=== PATIENT | female | born 1995 | race Hispanic/Latino ===

== ENCOUNTER 2018-03-25 00:31 | Emergency (ER) | payer BC ==
[2018-03-25] MEDS ORDERED: Ondansetron PF 4 MG/2 ML Vial ONE (00:38)
[2018-03-25 01:18] LABS: Band 5 % (5-11); Hemoglobin 14.8 g/dL (12.0-16.0); Lymphocytes 13 % (21-51); MDiff Complete? YES; Mean Corpuscular Hemoglobin 31.1 pg (27.0-31.0); Mean Corpuscular Volume 94.3 fL (78.0-98.0); Mean Platelet Volume 7.8 fL (7.4-10.4); Monocytes 5 % (0-10); Neutrophil 77 % (42-75); PLT Morphology Comment Appears Adequate; Platelet Count 314 thou/uL (130-400); Red Blood Cell (RBC) Count 4.75 mill/uL (4.20-5.40); White Blood Cell (WBC) Count 20.2 thou/uL (4.8-10.8)
[2018-03-25 01:21] LABS: ALT (SGPT) 27 U/L (8-55); AST (SGOT) 25 U/L (5-34); Albumin 4.3 g/dL (3.5-5.0); Alkaline Phosphatase 48 U/L (40-150); Anion Gap 15 mmol/L (10-20); BUN (Urea Nitrogen) 10 mg/dL (7.0-18.7); Bilirubin, Total 0.2 mg/dL (0.2-1.2); Calc. Creatinine Clearance 0 mL/min (70-130); Calcium 9.7 mg/dL (7.8-10.44); Carbon Dioxide 22 mmol/L (22-29); Chloride 102 mmol/L (98-107); Estimated GFR-MDRD 83; Globulin 3.9 g/dL (2.4-3.5); Glucose 91 mg/dL (70-105); Potassium 3.8 mmol/L (3.5-5.1); Protein, Total 8.2 g/dL (6.0-8.3); Sodium 135 mmol/L (136-145)
[2018-03-25] MEDS ORDERED: Dicyclomine 20 MG TAB ONE (02:04)
[2018-03-25] MEDS ORDERED: Metoclopramide HCl 10 MG/2 ML VIAL ONE (02:04)
[2018-03-25] MEDS ORDERED: diphenhydrAMINE 50 MG/ML VIAL ONE (02:04)
[2018-03-25] MEDS ORDERED: Pantoprazole 40 MG VIAL ONE (02:05)
[2018-03-25 02:44] LABS: Bilirubin Negative (Negative); Blood, Urine Negative (Negative); Clarity CLEAR (Clear); Glucose, Urine (Dipstick) Negative (Negative); Leukocyte Negative (Negative); Nitrite Negative (Negative); Protein, Urine (Dipstick) Trace mg/dL (Neg-Trace); Specific Gravity, Urine 1.024 (1.002-1.036); Urobilinogen 0.2 mg/dL (0.2-1.0)
[2018-03-25 02:46] LABS: Pregnancy Test - Urine (BHCG) Negative (Negative); Pregu Control Background? CLEAR/WHITE (CLR/WHITE); Pregu Control Bar Appear? YES (CONTROL BAR); Specific Gravity 1.024 (1.002-1.036)
[2018-03-25 03:00] LABS: Bacteria/HPF None Seen HPF (None Seen); Hyaline Casts/LPF 0-3 HYALINE CAST LPF (0-3 Hyaline); RBC/HPF 0-3 HPF (0-3); Squamous Epithelial 0-3 HPF (0-3); WBC/HPF 0-3 HPF (0-3)
--- NOTE | 2018-03-25 08:20 | CT ---
PRELIMINARY REPORT/[facility]/EMERGENTY AFTER-HOURS PROCEDURE CT Abdomen and Pelvis With Intravenous Contrast CLINICAL HISTORY: 22 years old, female; Pain; Abdominal pain; Acute; Patient HX: Pt reports abdominal pain onset at 200 0 today with associated vomiting. Reports possible hemorrhoid as well. TECHNIQUE: Axial computed tomography images of the abdomen and pelvis with intravenous contrast. All CT scans at this facility use at least one of these dose optimization techniques: automated exposure control; mA and/or kV adjustment per patient size (includes targeted exams where dose is matched to clinical indication); or iterative reconstruction. Coronal reformatted images were created and reviewed. COMPARISON: No relevant prior studies available. FINDINGS: Lung bases: No acute findings. No mass. No consolidation. ABDOMEN: Liver: No acute findings. No mass. Gallbladder and bile ducts: Few small calcified gallstones. No gallbladder wall thickening or pericho lecystic fluid. No biliary dilation. Pancreas: No ductal dilation. No mass. Spleen: No acute findings. No mass. Adrenals: No mass. Kidneys and ureters: No acute findings. No hydronephrosis. No solid mass. Stomach and bowel: Fluid-filled small and large bowel loops. There appears to be bowel wall enhanceme nt/thickening. Findings are likely related to enterocolitis. No evidence of bowel obstruction. PELVIS: Appendix: No findings to suggest acute appendicitis. Bladder: No acute findings. No mass. Reproductive: Right Bartholin gland cyst. ABDOMEN and PELVIS: Intraperitoneal space: No free air. No significant fluid collection. Bones/joints: No acute fracture. Soft tissues: No acute findings. Partially visualized right breast questionable asymmetric density. Vasculature: No acute findings. No abdominal aortic aneurysm. Lymph nodes: No lymphadenopathy. IMPRESSION: Enterocolitis. Cholelithiasis. Partially visualized right breast questionable asymmetric density; consider breast imaging correlatio n. Thank you for allowing us to participate in the care of your patient. Dictated and Authenticated by: John Lawrence MD 03/25/2018 4:15 AM Central Time ([place] & [place]) FINAL REPORT EMERGENT AFTER HOURS CT OF ABDOMEN AND PELVIS PERFORMED WITH CONTRAST ENHANCEMENT: HISTORY: Abdominal pain with vomiting. FINDINGS: The lung bases show some linear atelectatic change. Asymmetric soft tissue density of the right trena st in a patient of this age is probably just related to breast parenchyma, clinical examination. Thi s appears to be near the periareolar region of the breast. If indicated, ultrasound may be helpful i n assessment. The liver, spleen, and pancreas regions are unremarkable. Small areas of increased attenuation of th e gallbladder lumen appeared to represent some small stones. Right and left adrenal glands are normal in size and appearance. Right and left kidneys are normal. There is no significant periarticular adenopathy. There is some mild mesenteric adenopathy and smal l bowel loops, while not distended, are mildly fluid-filled as is some of the colon. This causes a s light enhancement pattern to the wall of the colon and small bowel which may just be related to the f luid within it causing the appearance. CT OF PELVIS PERFORMED WITH CONTRAST ENHANCEMENT: The appendix is normal. There is no adenopathy, mass, or free fluid. IMPRESSION: 1. Gallstones. 2. Asymmetric density of the right breast with questionable significance in a patient of this age. Clinical correlation would be recommended. 3. Findings that would suggest a possible enterocolitis. 4. This report is in agreement with the temporary report issued by [facility]. POS: [facility]
[2018-03-25] MEDS ORDERED: Iopamidol 370 76% 100 ML VIAL ONE (13:53)
== END 2018-03-25 04:34 | disposition home or self-care (01) ==
LOC: ERS 00:31
DX: R10.13 Epigastric pain (principal); R11.2 Nausea with vomiting, unspecified; Z79.899 Other long term (current) drug therapy
CPT/HCPCS: 74177; 80053; 81003; 81025; 83690; 85025; 96365; 96366; 96375; C9113; J1200; J2405; J2765

== ENCOUNTER 2018-09-28 04:54 | Emergency (ER) | payer BC, SELFPAY ==
--- NOTE | 2018-09-28 07:54 | RAD ---
EXAM: Chest PA and lateral: HISTORY: Cough COMPARISON: none FINDINGS: Lung griffin are clear. Vascular markings are normal. Heart and mediastinum appear unremarkable. Vascularity is normal. Osseous structures are unremarkable. IMPRESSION: Unremarkable chest
== END 2018-09-28 06:08 | disposition home or self-care (01) ==
LOC: ERS 04:54
DX: J20.9 Acute bronchitis, unspecified (principal)
CPT/HCPCS: 71046

== ENCOUNTER 2021-09-26 00:21 | Emergency (ER) | payer BC, SELFPAY | END 2021-09-26 02:50 | disposition home or self-care (01) | LOC: ERS 00:21 | DX: J20.9 Acute bronchitis, unspecified (principal); Z79.899 Other long term (current) drug therapy | CPT/HCPCS: 71045 ==